=== PATIENT | female | born 1930 | race Caucasian/White ===

== ENCOUNTER → 2018-07-05 | Outpatient (CLI) | payer MEDICARE | END | disposition home or self-care (01) | LOC: RAH 16:54 | PROVIDERS: ATTEND Internal Medicine | DX: M11.232 Other chondrocalcinosis, left wrist (principal); M11.231 Other chondrocalcinosis, right wrist; M19.032 Primary osteoarthritis, left wrist; M19.031 Primary osteoarthritis, right wrist | CPT/HCPCS: 73110 ==